=== PATIENT | male | born 1955 | race Caucasian/White ===

== ENCOUNTER 2020-09-06 15:09 | Outpatient (CLI) | payer BC | END 2020-09-06 15:10 | disposition home or self-care (01) | LOC: COV 15:09 | PROVIDERS: ATTEND Family Medicine | DX: M79.10 Myalgia, unspecified site (principal); R53.83 Other fatigue; R68.83 Chills (without fever); R43.9 Unspecified disturbances of smell and taste; R11.0 Nausea; Z20.822 Contact with and (suspected) exposure to COVID-19 ==